=== PATIENT | female | born 1960 | race Caucasian/White ===

== ENCOUNTER → 2018-12-18 09:33 | Outpatient (CLI) | payer MEDICAID ==
[~2018-12-18 09:33] MED LIST: BAYER CHEWABLE81 MG PO; CETIRIZINE HCL5 MG PO; FLUTICASONE PRO16 GM NASAL; HYDROCODON-ACE1 EA10 PO; KLONOPIN1 MG PO; LEXAPRO10 MG PO; PLAVIX75 MG PO; PROTONIX40 MG PO; ZOFRAN4 MG PO
[2018-12-30 11:47] VITALS: BMI 27.1
== END | disposition home or self-care (01) ==
LOC: D.HCCARDIO 09:33
PROVIDERS: ATTEND Internal Medicine Cardiovascular Disease
DX: I20.9 Angina pectoris, unspecified (principal)

== ENCOUNTER 2018-12-30 10:53 | Outpatient (CLI) | payer MEDICAID ==
[~2018-12-30] VITALS: Ht 160 cm; Wt 69.5 kg
--- NOTE | ~2018-12-30 | HEMODYNAMI ---
PATIENT:LOKESH LOPEZ MEDICAL RECORD: [id number] : 58 LOCATION:[facility] ADMISSION DATE: 12/30/18 Generatedon:12/30/201813:56 Patient name: LOKESH LOPEZ Patient #: [id number] SSN: D OB: 1960 Date of study: 12/30/2018 Page: Of Hemodynamic Procedure Report Patient Data Patient Demographics Procedure consent was obtained First Name: LOKESH Gender: Female Last Name: JOHN : 1960 Patient #: [id number] Age: 58 year(s) Race: Unknown Additional ID: [id number] Contact details Address: [place] [address] State: [place] City: [place] Zip code: [address] Past Medical History Allergies: No known allergies Admission Admission Data Admission Date: 12/30/2018 Admission Time: 10:53 Arrival Date: 12/30/2018 Arrival Time: 0:00 Height (in.): 62.99 BSA: 1.73 (m2) Height (cm.): 160 BMI: 27.34 (kg/m2) Weight (lbs.): 154.32 Weight (kg.): 70 Lab Results Lab Result Date: 12/30/2018 Lab Result Time: 0:00 Biochemistry Name Units Result Min Max BUN mg/dl 9 --(*---)-- 7 18 Creatinine mg/dl 0.6 --(*---)-- 0.6 1.3 eGFR ml/min 90 --(*---)-- 90 120 NONAFRICAN CBC Name Units Result Min Max Hematocrit % 38.7 *-(----)-- 42 54 Hemoglobin g/dl 12 *-(----)-- 13.5 17.5 Procedure Procedure Types Cath Procedure Diagnostic Procedure [facility] w/Coronaries Sedation Charges Moderate Sedation up to 30 minutes PCI Procedure Coronary Stent Coronary Stent Initial Procedure Description Procedure Date Procedure Date: 12/30/2018 Procedure Start Time: 13:08 Procedure End Time: 13:52 Procedure Staff Name Function Armando Lind MD Performing Physician Mis Bennett RT Monitor Haydee Maria RT Scrub Omega Lala RN Nurse Procedure Data Cath Procedure Fluoroscopy Diagnostic fluoroscopy Total fluoroscopy Time: 9.2 time: 9.2 min min Diagnostic fluoroscopy Total fluoroscopy dose: 840 dose: 840 mGy mGy Contrast Material Contrast Material Type Amount (ml) Isovue 300 173 Entry Location Entry Primary Successful Side Size Upsize Upsize Entry Closure Rincon ccessful Closure Location (Fr) 1 (Fr) 2 (Fr) Remarks Device Remarks Radial Right 6 Fr Mechanical artery Short Compression Estimated blood loss: 10 ml Diagnostic catheters Device Type Used For End Catheter Placement DIAGNOSTIC Paicines 110cm 5 Procedure Fr catheter ([id number]) DIAGNOSTIC AR MOD 5Fr Procedure Catheter ([id number]) Procedure Complications No complications Procedure Medications Medication Administration Route Dosage 0.9% NaCl I.V. 100 ml/hr Oxygen etCO2 Nasal cannula 2 l/min Heparin Flush Bag added to field 2 bags (1000units/500ml NS) Lidocaine 2% added to field 20 Radial Cocktail added to field 1 syringe (Verapamil 2mg/Nitro 400mcg/Heparin 1500units) Versed I.V. 2 mg Fentanyl I.V. 100 mcg Radial Cocktail I.A. 1 syringe (Verapamil 2mg/Nitro 400mcg/Heparin 1500units) Versed I.V. 2 mg Heparin Bolus I.V. 7000 units Nitroglycerin IC/IA I.C. 100 mcg Fentanyl I.V. 50 mcg Fentanyl I.V. 50 mcg Plavix P.O. 600 mg Hemodynamics Rest BSA: 1.73 (m2) HGB: 12 (g/dl) O2 Consumption: Estimated: 158.71 (ml/min) O2 Cons umption indexed: Estimated:91.74 (ml/min/m) Heart Rate: 61 (bpm) Pressure Samples Time Site Value (mmHg) Purpose Heart Use Rate(bpm) 13:13 LV 87/2,9 Snapshot 70 Gradients Valve Time Site Site Mean SEP/DFP Peak To Heart Use 1 2 (mmHg) (sec/min) Peak Rate (mmHg) (bpm) Aortic 13:13 LV AO 71 Snapshots Pre Cath Intra NCS Post Cath Vital Signs Time Heart Resp SPO2 etCO2 NIBP (mmHg) Rhythm Pain Sedation Rate (ipm) (%) (mmHg) Status Level (bpm) 12:55:19 62 14 99 40.5 127/68(103) NSR 0 (11) 10(A) , No pain 12:59:33 66 26 99 19.5 109/65(88) NSR 0 (11) 10(A) , No pain 13:03:49 61 13 97 43.4 104/46(86) NSR 0 (11) 10(A) , No pain 13:07:57 61 17 100 40.5 109/61(90) NSR 0 (11) 10(A) , No pain 13:12:09 64 12 91 47.2 116/59(84) NSR 0 (11) 10(A) , No pain 13:16:17 68 15 93 40.5 96/50(67) NSR 0 (11) 10(A) , No pain 13:20:25 68 16 94 45.7 99/51(80) NSR 0 (11) 10(A) , No pain 13:24:32 65 16 94 42 107/58(82) NSR 0 (11) 10(A) , No pain 13:28:42 67 18 96 41.2 105/61(80) NSR 0 (11) 10(A) , No pain 13:32:52 68 15 95 24 106/59(82) NSR 0 (11) 10(A) , No pain 13:37:02 69 13 94 41.9 116/58(92) NSR 0 (11) 10(A) , No pain 13:41:14 68 15 97 45.7 107/62(89) NSR 0 (11) 10(A) , No pain 13:45:16 67 12 97 38.2 109/69(91) NSR 0 (11) 10(A) , No pain 13:49:26 65 13 96 43.4 104/47(95) NSR 0 (11) 10(A) , No pain Medications Time Medication Route Dose Verified Delivered Reason Not es Effectiveness by by 12:56:55 0.9% NaCl I.V. 100 Omega Omega Per physician ml/hr Spike Lala RN RN 12:57:08 Oxygen etCO2 2 l/min Omega Omega for low 02 sats Nasal Spike Lala cannula RN RN 12:57:19 Heparin Flush added 2 bags Omega Omega used for Bag to Lorigan Lorigan procedure (1000units/500ml field RN RN NS) 12:57:30 Lidocaine 2% added 20ml Omega Omega for local to vial Lorigan Lorigan anesthetic field RN RN 12:57:40 Radial Cocktail added 1 Omega Omega used for (Verapamil to syringe Lorigan Lorigan procedure 2mg/Nitro field RN RN 400mcg/Heparin 1500units) 13:09:29 Versed I.V. 2 mg Omega Omega for sedation Spike Lala RN RN 13:09:37 Fentanyl I.V. 100 mcg Omega Omega for sedation Spike Lala RN RN 13:12:52 Radial Cocktail I.A. 1 Omega Armando for (Verapamil syringe Spike Lind MD vasodilation 2mg/Nitro RN 400mcg/Heparin 1500units) 13:13:02 Versed I.V. 2 mg Omega Omega for sedation Spike Lala RN RN 13:29:26 Heparin Bolus I.V. 7,000 Omega Omega for units Lorigan Spike anticoagulation RN RN 13:34:51 Nitroglycerin I.C. 100 mcg Omega Armando for IC/IA Spike Lind MD vasodilation RN 13:39:48 Fentanyl I.V. 50 mcg Omega Omega for sedation Spike Lala RN RN 13:48:55 Fentanyl I.V. 50 mcg Omega Omega for sedation Spike Lala RN RN 13:49:10 Plavix P.O. 600 mg Omega Omega for Spike Lala antiplatelet RN RN therapy Procedure Log Time Note 12:18:08 Informed consent obtained and on chart 12:18:49 Procedure Status Elective Heart Cath (OP). 12:18:50 Time tracking: Regular hours (M-F 7:00 - 5:00) 12:18:53 Plan of Care:Hemodynamics will remain stable., Cardiac rhythm will remain stable., Comfort level will be maintained., Respiratory function will remain adequate., Patient/ family verbilizes understanding of procedure., Procedure tolerated without complication., Recovers from procedure without complications.. 12:33:47 Mis Bennett RT(R) sent for patient. Start room use. 12:33:51 H&P Date Dictated: 12/30/2018 New H&P dictated by physician.. 12:36:21 Patient Weight : 154.32 lbs 12:36:24 Patient Height : 62.99 inches 12:36:28 Arrival Date: 12/30/2018 12:00:00 AM 12:43:55 Patient received from Pre/Post Procedure Room to CCL 1 Alert and oriented. Tansferred to table in Supine position. 12:43:56 Warm blankets applied, and speedy hugger turned on for patient comfort. 12:43:56 Correct patient and procedure confirmed by team. 12:43:57 ECG and BP/O2 sat monitors applied to patient. 12:54:17 Vital chart was started 12:54:18 Baseline sample Acquired. 12:54:22 Rhythm: sinus rhythm 12:54:23 Full Disclosure recording started 12:54:24 Pre-procedure instructions explained to patient. 12:54:24 Pre-op teaching completed and patient verbalized understanding. 12:54:26 Family in patients room. 12:54:27 Patient NPO since Midnight. 12:54:34 Patient allergic to No known allergies 12:54:36 Is patient on blood thinner?No 12:54:37 Is the patient allergic to Iodine/contrast media? No. 12:54:39 Patient diabetic? No. 12:54:42 Previous problem with sedation/anesthesia? No ? 12:54:44 Snore? Yes 12:54:45 Sleep apnea? No 12:54:46 Deviated septum? No 12:54:47 Opens mouth fully? Yes 12:54:48 Sticks out tongue? Yes 12:54:54 Airway obstruction? Yes COPD 12:54:57 Dentures? Yes IN 12:55:00 Modified Dino's test Ulnar < 7 seconds 12:55:02 Pre procedure: right dorsailis pedis pulse 1+ Palpable, but thready & weak; easily obliterated 12:55:05 Patient pain scale 0/10 ?. 12:55:12 IV patent on arrival in right antecubital with 0.9% NaCl at [facility]. 12:55:38 Lab Result : BUN 9 mg/dl 12:55:38 Lab Result : Creatinine 0.6 mg/dl 12:55:38 Lab Result : Hemoglobin 12 g/dl 12:55:38 Lab Result : eGFR NONAFRICAN 90 ml/min 12:55:38 Lab Result : Hematocrit 38.7 % 12:55:41 Lab results completed and on chart. 12:56:55 0.9% NaCl 100 ml/hr I.V. was administered by Omega Lala RN; Per physician; Verbal order read back and verified. 12:57:08 Oxygen 2 l/min etCO2 Nasal cannula was administered by Omega Lala RN; for low 02 sats; Verbal order read back and verified. 12:57:19 Heparin Flush Bag (1000units/500ml NS) 2 bags added to field was administered by Omega Lala RN; used for procedure; Verbal order read back and verified. 12:57:30 Lidocaine 2% 20ml vial added to field was administered by Omega Lala RN; for local anesthetic; Verbal order read back and verified. 12:57:40 Radial Cocktail (Verapamil 2mg/Nitro 400mcg/Heparin 1500units) 1 syringe added to field was administered by Omega Lala RN; used for procedure; Verbal order read back and verified. 12:57:45 Stress Test: yes; abnormal INFERIOR 12:57:48 Risk of Mortality: .1 12:57:51 Risk of blood transfusion: 1.3 12:57:55 Risk of MANUEL: 2.2 12:57:58 Right Radial & Right Groin area was prepped with chlora-prep and draped in sterile fashion 12:58:04 Alarms reviewed by R. N. 12:58:04 Sharps counted by scrub and verified by R.N. 12:58:07 Use device set Radial Dx or PCI 12:58:08 ACIST Syringe (03490) opened to sterile field. 12:58:09 Bag Decanter () opened to sterile field. 12:58:10 ACIST Hand Control (65840) opened to sterile field. 12:58:10 ACIST Manifold (37280) opened to sterile field. 12:58:10 Tegaderm 4 x 4 (1626W) opened to sterile field. 12:58:12 Medline Cath Pack ([id number]) opened to sterile field. 12:58:13 MBrace Wrist Support ([id number]) opened to sterile field. 12:58:13 NEEDLE Cook 21G 4cm Radial (X88615) opened to sterile field. 12:58:15 EMERALD Guide Wire (502-299) opened to sterile field. 12:58:15 SHEATH 6FR RAIN (4436821) opened to sterile field. 13:01:59 Zero performed for pressure channel P1 13:06:01 --------ALL STOP TIME OUT------ 13:06:02 Final Timeout: patient, procedure, and site verified with staff and physician. All members of the team are in agreement. 13:06:04 Right Radial & Right Groin site verified by team. 13:06:07 Fire Safety Assessment: A--An alcohol-based skin anteseptic being used preoperatively., C--Open oxygen or nitrous oxide is being used., D--An ESU, laser, or fiber-optic light is being used. 13:06:17 Physical assessment completed. ASA score P 2 - A patient with mild systemic disease as per Armando Lind MD. 13:06:20 1) 90+ Normal kidney functon but urine findings or structural abnormalities or genetic trait point to kidney disease. 13:06:23 Maximum allowable contrast dose (3.7 X eGFR X 0.75)250 ml. 13:06:27 Sedation plan: IV Moderate Sedation Medication:Versed, Fentanyl 13:08:28 Procedure started. 13:08:38 Zero performed for pressure channel P1 13:08:51 Local anesthetic to right radial artery with Lidocaine 2% by Armando Lind MD.INITIAL ACCESS ONLY 13:09:29 Versed 2 mg I.V. was administered by Omega Lala RN; for sedation; Verbal order read back and verified. 13:09:37 Fentanyl 100 mcg I.V. was administered by Omega Lala RN; for sedation; Verbal order read back and verified. 13:12:08 A 6 Fr Short sheath was inserted into the Right Radial artery 13:12:25 A DIAGNOSTIC Paicines 110cm 5 Fr catheter (934818) was advanced over the wire and used for Procedure. 13:12:52 Radial Cocktail (Verapamil 2mg/Nitro 400mcg/Heparin 1500units) 1 syringe I.A. was administered by Armando Lind MD; for vasodilation; Verbal order read back and verified. 13:13:02 Versed 2 mg I.V. was administered by Omega Lala RN; for sedation; Verbal order read back and verified. 13:13:06 LV gram done using SIMMS 13:13:16 Injector settings: Ml/sec: 5, Volume: 15, 13:13:19 LV hemodynamics recorded. 13:13:51 EF : 45 % 13:14:54 LCA angiography performed. 13:16:52 Catheter exchanged over wire. 13:17:21 A DIAGNOSTIC AR MOD 5Fr Catheter ([id number]) was advanced over the wire and used for Procedure. 13:22:12 RCA angiography performed. 13:24:23 Catheter exchanged over wire. 13:25:36 GUIDE 6FR 3DRC catheter ([id number]) opened to sterile field. 13:25:37 TUBING High Pressure Extension Tubing (Diogo) ([id number]) opened to sterile field. 13:25:37 BMW 300cm Straight Jermyn 2 wire (4858202) opened to sterile field. 13:25:42 INFLATOR Merit BasixCompak (AZ7764) opened to sterile field. 13:26:05 Proceeding to intervention. 13:26:31 Pre PCI Site: [place] mRCA has 90% stenosis. 13:26:45 6 Fr 3DRC guide catheter was inserted over the wire 13:27:36 BMW 300 wire advanced. 13:29:26 Heparin Bolus 7,000 units I.V. was administered by Omega Lala RN; for anticoagulation; Verbal order read back and verified. 13:29:49 Wire advanced across lesion. 13:32:39 Place stent Inflation Number: 1 A JEANNETTE OTW 3.5 x 22 stent ([id number]) was prepped and advanced across the Mid RCA . The stent was deployed at 12 SANKET for 0:00 (min:sec) . 13:32:57 Stent catheter was removed intact over wire. 13:34:51 Nitroglycerin IC/IA 100 mcg I.C. was administered by Armando Lind MD; for vasodilation; Verbal order read back and verified. 13:39:27 Place stent Inflation Number: 2 A JEANNETTE OTW 3.5 x 12 stent ([id number]) was prepped and advanced across the Mid RCA . The stent was deployed at 12 SANKET for 0:00 (min:sec) . 13:39:48 Fentanyl 50 mcg I.V. was administered by Omega Lala RN; for sedation; Verbal order read back and verified. 13:39:52 Stent catheter was removed intact over wire. 13:40:09 Wire removed. 13:40:09 Guide catheter removed. 13:40:17 ZEPHYR REGULAR TR BAND (795430) opened to sterile field. 13:41:05 Procedure ended.(Physican Out) 13:41:20 Sheath removed intact; hemostasis achieved with Mechanical Compression to the Right Radial artery. 13:42:14 Fluoroscopy time 09.20 minutes. 13:42:24 Fluoroscopy dose: 840 mGy 13:42:24 Flurop Dose total: 840 13:42:30 Dose Area Product 64461 mGy/cm. 13:42:55 Sharps counted by scrub and verified by R.N. 13:43:01 [place] band inflated with 12cc of air. 13:43:02 Insertion/operative site no bleeding no hematoma. 13:43:05 Post-procedure physical assessment completed. ASA score P 2 - A patient with mild systemic disease as per Armando Lind MD. 13:43:08 Post procedure rhythm: sinus rhythm 13:43:10 Estimated blood loss: 10 ml 13:43:16 Post procedure instruction explained to patient.Patient verbalizes understanding. 13:43:16 Patient needs reinforcement of post procedure teaching. 13:44:24 Procedure type changed to Cath procedure, Diagnostic procedure, LHC, C w/Coronaries, Sedation Charges, Moderate Sedation up to 30 minutes, PCI procedure, Coronary Stent, Coronary Stent Initial 13:44:44 Contrast amount:Isovue 300 173ml. 13:44:46 Maximum allowable dose exceeded? No. 13:45:21 Procedure and supply charges have been captured, reviewed, submitted and are correct. 13:45:25 Procedure Complication : No complications 13:47:20 [facility] Findings: MVD- PCI performed (see procedure note) 13:47:21 Operative report dictated upon procedure completion. 13:47:22 See physician's report for complete and final results. 13:48:07 ACT drawn and resulted at >400 seconds. (normal therapeutic range 180-240 seconds). 13:48:55 Fentanyl 50 mcg I.V. was administered by Omega Lala RN; for sedation; Verbal order read back and verified. 13:49:10 Plavix 600 mg P.O. was administered by Omega Lala RN; for antiplatelet therapy; Verbal order read back and verified. 13:49:45 Report given to Pre/Post Procedure Room. 13:49:48 Patient transfered to Pre/Post Procedure Room with Bed. 13:49:54 ACC-PCI Only Patient was given prescriptions, or instructed by Armando Lind MD to start/continue the following medications upon discharge: Plavix 13:52:21 Vital chart was stopped 13:52:24 Procedure ended. 13:52:24 Full Disclosure recording stopped 13:52:28 End room use (Document Last) Intervention Summary Intervention Notes Time ActionType Lesion and Equipment Action# Pressure Duration Attributes Used 13:32:39 Place stent Mid RCA JEANNETTE OTW 3.5 1 12 00:00 x 22 stent ([id number]) 13:39:27 Place stent Mid RCA JEANNETTE OTW 3.5 2 12 00:00 x 12 stent ([id number]) Device Usage Item Name Manufacture Quantity Catalog Hospital Part Current Mini mal Lot# / Number Charge Number Stock Stock Serial# Code ACIST Syringe Acist 1 18184 658059 113866 344655 20 (41018) Medical Systems Inc Bag Decanter Microtek 1 2001S 309651 07896 298787 5 (2001S) Medical Inc. ACIST Hand Acist 1 14976 177486 997734 374824 5 Control Medical (23955) Systems Inc ACIST Acist 1 62222 744905 145707 411233 5 Manifold Medical (62022) Systems Inc Tegaderm 4 x 3M 1 1626W 833908 015366 095132 5 4 (1626W) Medline Cath Medline 1 [id number] 348909 89197 074147 5 Pack ([id number]) MBrace Wrist Advanced 1 140-0250-00 127591 17093 127329 5 Support Vascular (951433252) Dynamics NEEDLE Cook [employer] [employer] Medical 1 R73275 542940 757753 578245 5 21G 4cm Radial (J61669) EMERALD Guide Cardinal 1 502-455 629872 289217 177488 5 Wire Health (502-455) SHEATH 6FR Cardinal 1 1487717 430540 6918475 473287 5 [facility] (8986181) DIAGNOSTIC Terumo 1 40-3741 974788 204413 773778 5 Paicines 110cm 5 Fr catheter (279701) DIAGNOSTIC AR Cardinal 1 144444P 622794 397043 222892 15 MOD 5Fr Health Catheter (450831J) GUIDE 6FR Medtronic 1 [id number] 313740 347459 570421 1 3DRC catheter (HS73KFW) TUBING High Merit 1 [id number] 659022 10772 246179 10 Pressure Medical Extension Tubing (Lind) (WA3217K) BMW 300cm Sal 1 1348647 796812 834995 582261 5 Straight Vascular Jermyn 2 wire (5990279) INFLATOR Merit 1 RB1162 083389 943946 454587 15 Merit Medical BasixCompak (FL3596) JEANNETTE OTW 3.5 Medtronic 1 [id number] 320766 3692936 528475 5 [id number] x 22 stent ([id number]) JEANNETTE OTW 3.5 Medtronic 1 [id number] 457683 7832373 364172 5 [id number] x 12 stent ([id number]) ZEPHYR Cardinal 1 618236 300736 5794656 613234 5 REGULAR TR Health BAND (916873) Signature Audit Murtaugh Stage Time Signature Unsigned Intra-Procedure 12/30/2018 Mis Bennett 1:54:46 PM RT(R) Intra-Procedure 12/30/2018 Omega 1:55:39 PM Spike BETH Intra-Procedure 12/30/2018 Armando Lind MD 1:56:01 PM [facility] [address] [place] [address]
[2018-12-30] MEDS ORDERED: KLONOPIN1 MG PO (11:30)
[2018-12-30] MEDS ORDERED: HYDROCODON-ACE1 EA10 PO (11:30)
[2018-12-30] MEDS ORDERED: PROTONIX40 MG PO (11:30)
[2018-12-30] MEDS ORDERED: FLUTICASONE PRO16 GM NASAL (11:31)
[2018-12-30] MEDS ORDERED: LEXAPRO10 MG PO (11:31)
[2018-12-30] MEDS ORDERED: ZOFRAN4 MG PO (11:32)
[2018-12-30] MEDS ORDERED: CETIRIZINE HCL5 MG PO (11:32)
[2018-12-30 11:47] VITALS: BP 125/64; Ht 160 cm; Wt 69.5 kg
[2018-12-30 12:09] LABS: BASOPHILS 0.3 % (0-2); EOSINOPHILS 3.3 % (0-7); HEMATOCRIT 38.7 % (36.0-48.0); IMMATURE GRANULOCYTES 0.2 % (0-5); LYMPHOCYTES 31.7 % (15-50); MCH 29.3 pg (26.0-34.0); MCV 94.4 fL (80.0-100.0); MEAN PLATELET VOLUME 11.2 fL (7.4-10.4); MONOCYTES 4.9 % (2-11); NEUTROPHILS 59.6 % (40-80); PLATELET COUNT 206 10x3/uL (130-400); RDW 14.4 % (11.5-14.5); WBC 6.6 10x3/uL (4.8-10.8)
[2018-12-30 12:18] LABS: CALC OSMOLALITY 277 mosm/kg (275-300); CALCIUM 8.4 mg/dL (8.5-10.1); CARBON DIOXIDE 33.6 mmol/L (21.0-32.0); CHLORIDE - SERUM 103 mmol/L (98-107); CREATININE - SERUM 0.6 mg/dL (0.6-1.3); GLUCOSE 90 mg/dL (74-106); POTASSIUM - SERUM 4.2 mmol/L (3.5-5.1); SODIUM 140 mmol/L (136-145); UREA NITROGEN 9 mg/dL (7-18); eGFR NON AFRICAN AMERICAN > 90 mL/min (90-120)
[2018-12-30 12:23] LABS: CHOL - HDL RATIO 3.9 ratio (2.3-4.1); LDL-HDL RATIO 2.4 ratio (1.5-3.5)
[2018-12-30] MEDS ORDERED: BAYER CHEWABLE81 MG PO (13:54)
[2018-12-30] MEDS ORDERED: PLAVIX75 MG PO (13:54)
--- NOTE | 2018-12-30 14:05 | NUR ---
PT RECEIVED VIA STRECTHER FROM PILL MACHINE OPERATOR FOR RECOVERY. PT AWAKE BUT DROWSY, PT DENIES CHEST PAIN OR DISCOMFORT. IV PATENT INFUSING VIA ORDERS TO R ARM. PT PLACED ON CARDIAC MONITORS, O2 ON VIA NC AT 2L. HR NSR RATE 67, BP 117/64, RR 11, SAT 98. ZYPHER BAND AND IMMOBILIZER IN PLACE, DRESSING W SMALL AMT OF BLEEDING. NO HEMATOMA OR SWELLING NOTED. ARM PINK AND WARM. PT INSTRUCTED NOT TO USE ARM SHE VERBALIZED UNDERSTANDING. CALL LIGHT IN REACH, FAMILY AT BEDSIDE.
--- NOTE | 2018-12-30 14:33 | NUR ---
PT AWAKE TALKING ON PHONE. ZBAND AND IMMOBILIZER IN PLACE, DRESSING CDI NO ACTIVE BLEEDING NOTED. CAP REFILL DELAYED SLIGHTLY WHICH IS NORMAL FOR PT. ARM PINK AND WARM. PT DENIES PAIN OR NEEDS, STATES HEARTBURN IS BETTER NOW. CALL LIGHT IN REACH.
--- NOTE | 2018-12-30 15:15 | NUR ---
PT RESTING W/O COMPLAINTS OF PAIN OR DISCOMFORT. ZBAND IN PLACE, DRESSING CDI NO BLEEDING OR SWELLING NOTED. VSS. CALL LIGHT IN REACH.
--- NOTE | 2018-12-30 15:45 | NUR ---
NO CHANGE IN PT CONDITION. R WRIST W Z BAND, NO BLEEDING OR HEMATOMA NOTED. VSS. CALL LIGHT IN REACH.
--- NOTE | 2018-12-30 16:14 | NUR ---
PT SITTING UP IN BED EATING VISITING W FAMILY. Z BAND IN PLACE, NO BLEEDING OR SWELLING NOTED. ARM PINK AND WARM. HR 65, BP 134/53 R 14. PT DENIES PAIN OR NEEDS AT THIS TIME.
--- NOTE | 2018-12-30 16:45 | NUR ---
PT ON BEDPAN, VOIDED AND BM. PT CLEANED UP AND POSITIONED FOR COMFORT. 4CC AIR REMOVED FROM Z BAND, NO BLEEDING OR HEMATOMA NOTED. ARM PINK AND WARM, VSS. CALL LIGHT IN REACH, FAMILY AT BEDSIDE.
--- NOTE | 2018-12-30 17:13 | NUR ---
PT RESTING COMFORTABLY W/O COMPLAINTS. 4 ADD'L CC AIR REMOVED FROM ZYPHER BAND. NO BLEEDING OR SWELLING NOTED. O2 REMOVED. CALL LIGHT IN REACH, FAMILY REMAINS AT BEDSIDE.
--- NOTE | 2018-12-30 17:38 | NUR ---
DISCHARGE INSTRUCTIONS REVIEWED W PT AND FAMILY, THEY UNDERSTOOD. EXPLAINED THE IMPORTANCE OF STARTING PLAVIX AND ASA TOMORROW. IV REMOVED W CATH INTACT. MONITORS AND O2 REMOVED. PT UP TO DRESS FOR DISCHARGE W ASSIST FROM FAMILY.
--- NOTE | 2018-12-30 17:52 | NUR ---
1745 Z BAND AND REMAINING AIR REMOVED W/O BLEEDING NOTED. SITED CLEANED AND 2X2 AND TEGADERM DRESSING APPLIED. IMMOBILIZER REPOSITIONED. PT DISCHARGED VIA WC TO DAUGHTER WAITING IN PRIVATE VEHICLE. PT HAD ALL BELONGINGS AND DISHCARGE PAPERWORK IN HAND.
== END 2018-12-30 17:45 | disposition home or self-care (01) ==
LOC: D.CATH 10:53
PROVIDERS: ATTEND Internal Medicine Cardiovascular Disease
DX: I25.119 Atherosclerotic heart disease of native coronary artery with unspecified angina pectoris (principal); R94.30 Abnormal result of cardiovascular function study, unspecified